=== PATIENT | female | born 1950 | race Caucasian/White ===

== ENCOUNTER 2017-11-29 09:16 | Day surgery (SDC) | payer MEDICARE, OTHER ==
[~2017-11-29] VITALS: Ht 167.6 cm; Wt 80.7 kg
[~2017-11-29 09:16] MED LIST: ALENDRONAT70 MG/75 M IM; ALEVE220 M2 PO; B12 FAST DIS5000 MCG PO; CALCI23 PO; COZAAR100 MG PO; DULOXETINE HCL60 MG PO; FEMARA2.5 M1 PO; OXTELLAR XR150 MG PO; PRESERVISION PO
[2017-11-29 12:05] VITALS: BP 153/83
== END 2017-11-29 12:20 | disposition home or self-care (01) ==
LOC: ENDO 09:16
PROVIDERS: ATTEND Surgery
PROC: 0DJD8ZZ Inspection of Lower Intestinal Tract, Via Natural or Artificial Opening Endoscopic (ICD-10-PCS; principal; 2017-11-29)
DX: Z12.11 Encounter for screening for malignant neoplasm of colon (principal); K56.2 Volvulus; Z91.040 Latex allergy status

== ENCOUNTER 2019-10-29 06:48 | Day surgery (SDC) | payer MEDICARE, OTHER ==
[~2019-10-29] VITALS: Ht 167.6 cm; Wt 75.3 kg
[~2019-10-29 06:48] MED LIST changes: +CRESTOR10 MG PO; +LEFLUNOMIDE10 MG PO
[2019-10-29 09:31] VITALS: BP 160/87
== END 2019-10-29 09:50 | disposition home or self-care (01) ==
LOC: ENDO 06:48 → ORM 08:45 → ENDO 09:00
PROVIDERS: ATTEND Surgery
PROC: 0DBH8ZX Excision of Cecum, Via Natural or Artificial Opening Endoscopic, Diagnostic (ICD-10-PCS; principal; 2019-10-29)
PROC: 0DBM8ZX Excision of Descending Colon, Via Natural or Artificial Opening Endoscopic, Diagnostic (ICD-10-PCS; 2019-10-29)
DX: Z12.11 Encounter for screening for malignant neoplasm of colon (principal); D12.0 Benign neoplasm of cecum; D12.4 Benign neoplasm of descending colon; K64.8 Other hemorrhoids; Z86.010 Personal history of colon polyps; Z20.828 Contact with and (suspected) exposure to other viral communicable diseases